=== PATIENT | female | born 1990 | race Caucasian/White ===

== ENCOUNTER → 2016-11-27 | Outpatient (CLI) | payer OTHER, MEDICARE | END | disposition home or self-care (01) | LOC: CFH 12:33 | PROVIDERS: ATTEND Internal Medicine Endocrinology, Diabetes & Metabolism | DX: E06.3 Autoimmune thyroiditis (principal) | CPT/HCPCS: 76536 ==

== ENCOUNTER 2016-12-18 05:13 | Day surgery (SDC) | payer OTHER, MEDICARE ==
[2016-12-17 08:10] VITALS: BP 114/78
[~2016-12-18] VITALS: Ht 156.2 cm; Wt 52.7 kg
[~2016-12-18 05:13] MED LIST: ARIP20TA5 PO; BENZ0.5T PO; IBUP200T64 PO; LEVO50TA5 PO; LORA0.5T PO; MULT-516 PO; SERT100T5 PO
[2016-12-18 06:06] LABS: HCG UR LOT HCG7030192
[2016-12-18] MEDS ORDERED: LACTATED RINGERS 1,000 ML IV SCH (06:06)
[2016-12-18 06:08] VITALS: BP 114/78
[2016-12-18 06:14] LABS: HCG UR OBC PASS
[2016-12-18] MEDS ORDERED: LIDOCAINE 1%, 2ML ONE (06:16)
[2016-12-18] MEDS ORDERED: LIDOCAINE 1%, 2ML SQ PRN (06:30)
[2016-12-18] MEDS ORDERED: ROCURONIUM 10 MG/ML ONE (06:48)
[2016-12-18] MEDS ORDERED: MIDAZOLAM 1 MG/ML, 2ML ONE (06:48)
[2016-12-18] MEDS ORDERED: FENTANYL PF 100 MCG/2ML ONE ×2 (06:48)
[2016-12-18] MEDS ORDERED: CEFAZOLIN 1,000 MG ONE ×2 (06:48)
[2016-12-18] MEDS ORDERED: PROPOFOL 10 MG/ML, 20ML ONE (06:48)
[2016-12-18] MEDS ORDERED: OXYMETAZOLINE NASAL SPRAY 0.05%, 15ML ONE (06:50)
[2016-12-18] MEDS ORDERED: NEOSTIGMINE 1 MG/ML, 10ML ONE (06:54)
[2016-12-18] MEDS ORDERED: GLYCOPYRROLATE 0.4 MG/2 ML, 2ML ONE (06:54)
[2016-12-18] MEDS ORDERED: ONDANSETRON 2MG/ML, 2ML ONE (06:55)
[2016-12-18] MEDS ORDERED: DEXAMETHASONE 4 MG/ML, 1ML ONE ×2 (06:55)
[2016-12-18] MEDS ORDERED: ONDANSETRON 2MG/ML, 2ML IVPush PRN (07:30)
[2016-12-18] MEDS ORDERED: OXYcodone 5 MG/5 ML ORAL.SOL UDC PO PRN (07:30)
[2016-12-18] MEDS ORDERED: PROMETHAZINE 25 MG/ML, 1ML IV PRN (07:30)
[2016-12-18] MEDS ORDERED: HYDROmorphone 1 MG/ML, 1ML IV PRN (07:30)
[2016-12-18] MEDS ORDERED: ACETAMINOPHEN 325 MG TABLET PO PRN (07:30)
[2016-12-18] MEDS ORDERED: FENTANYL PF 100 MCG/2ML IV PRN (07:30)
[2016-12-18] MEDS ORDERED: ACETAMINOPHEN 650 MG/20.3 ML UDC ONE (08:39)
[2016-12-18] MEDS ORDERED: OXYcodone 5 MG/5 ML ORAL.SOL UDC ONE (08:39)
[2016-12-18] MEDS ORDERED: MEPERIDINE/PF 25MG/0.5ML ONE (08:40)
[2016-12-18] MEDS ORDERED: MEPERIDINE/PF 25MG/0.5ML IVPush PRN (09:00)
== END 2016-12-18 11:00 ==
LOC: OUT 05:13
PROVIDERS: ATTEND Otolaryngology
DX: J03.91 Acute recurrent tonsillitis, unspecified (principal); F32.9 Major depressive disorder, single episode, unspecified
CPT/HCPCS: 42821; 81025; 88304; J1100; J2175; J2250; J2405; J2704; J2710; J3010; J7120; J0690

== ENCOUNTER → 2017-02-20 | Outpatient (CLI) | payer OTHER, MEDICARE | LOC: STAR 14:32 | PROVIDERS: ATTEND Obstetrics & Gynecology Gynecology | DX: Z01.818 Encounter for other preprocedural examination (principal); Z30.2 Encounter for sterilization | CPT/HCPCS: 36415; 84703; 85014; 85018 ==

== ENCOUNTER 2017-03-01 08:40 | Day surgery (SDC) | payer OTHER, MEDICARE ==
[~2017-03-01] VITALS: Ht 156.2 cm; Wt 53.0 kg
[2017-03-01] MEDS ORDERED: LACTATED RINGERS 1,000 ML IV SCH (09:24)
[2017-03-01 09:52] VITALS: BP 121/85
[2017-03-01 10:05] LABS: HCG UR SG 1.029 (1.003-1.030)
[2017-03-01] MEDS ORDERED: BUPIVACAINE/PF 0.25% ONE (11:10)
[2017-03-01] MEDS ORDERED: PROPOFOL 10 MG/ML, 20ML ONE (11:21)
[2017-03-01] MEDS ORDERED: ROCURONIUM 10 MG/ML,10ML ONE (11:21)
[2017-03-01] MEDS ORDERED: ONDANSETRON 2MG/ML, 2ML ONE (11:22)
[2017-03-01] MEDS ORDERED: DEXAMETHASONE 4 MG/ML, 1ML ONE ×2 (11:22)
[2017-03-01] MEDS ORDERED: MIDAZOLAM 1 MG/ML, 2ML ONE (11:22)
[2017-03-01] MEDS ORDERED: FENTANYL PF 100 MCG/2ML ONE ×2 (11:45→12:26)
[2017-03-01] MEDS ORDERED: OXYcodone 5 MG/5 ML ORAL.SOL UDC ONE (12:26)
[2017-03-01] MEDS ORDERED: ACETAMINOPHEN 650 MG/20.3 ML UDC ONE (12:26)
[2017-03-01] MEDS ORDERED: OXYcodone 5 MG/5 ML ORAL.SOL UDC PO PRN (12:30)
[2017-03-01] MEDS ORDERED: MEPERIDINE/PF 25MG/0.5ML IVPush PRN (12:30)
[2017-03-01] MEDS ORDERED: FENTANYL PF 100 MCG/2ML IV PRN (12:30)
[2017-03-01] MEDS ORDERED: ONDANSETRON 2MG/ML, 2ML IVPush PRN (12:30)
[2017-03-01] MEDS ORDERED: morphine SULFATE 10 MG/ML, 1ML IV PRN (12:30)
[2017-03-01] MEDS ORDERED: HYDROcodone/APAP 7.5-325MG/15ML UDC PO PRN (12:30)
[2017-03-01] MEDS ORDERED: ACETAMINOPHEN 325 MG TABLET PO PRN (12:30)
== END 2017-03-01 13:50 | disposition home or self-care (01) ==
LOC: OUT 08:40
PROVIDERS: ATTEND Obstetrics & Gynecology Gynecology
DX: Z30.2 Encounter for sterilization (principal); F32.9 Major depressive disorder, single episode, unspecified; E03.9 Hypothyroidism, unspecified; Z90.49 Acquired absence of other specified parts of digestive tract; Z79.899 Other long term (current) drug therapy
CPT/HCPCS: 58670; 81025; J1100; J2250; J2405; J2704; J3010; J3490; J7120

== ENCOUNTER 2018-05-22 14:38 | Outpatient (CLI) | payer MEDICARE ==
[~2018-05-22 14:38] MED LIST changes: -BENZ0.5T PO; +BENZ0.5T35 PO; +SERT100T32 PO; -SERT100T5 PO
== END 2018-05-22 23:59 | disposition home or self-care (01) ==
LOC: RAD 14:38
PROVIDERS: ATTEND Nurse Practitioner
DX: Z02.9 Encounter for administrative examinations, unspecified (principal)